=== PATIENT | female | born 1950 | race Caucasian/White ===

== ENCOUNTER 2020-06-22 10:30 | Day surgery (SDC) | payer MEDICARE, OTHER ==
[~2020-06-22 10:30] MED LIST: BESIFLOXACIN HCL 0.6% OPH SUSP 5 ML BOTTLE OD PRN; BUPIVACAINE HCL 0.75% INJ/PF (7.5 MG/1 ML) 10 ML SDV OD PRN; CYCLOPENTOLATE 0.2%/PHENYLEPHRINE 1% OPH SOLN 2 ML OD PRN; DORZOLAMIDE HCL 2%/TIMOLOL MALEAT 0.5% OPH SOLN 10 ML OD PRN; KETOROLAC TROMETHAMINE 0.45% 4 DROP/0.4 ML DROPERETTE OD PRN; LIDOCAINE 1% INJ-PF (10 MG/ML) 30 ML SDV ONE; LIDOCAINE 4% INJ/PF (40 MG/ML) 5 ML AMPUL OD PRN; TETRACAINE HCL 0.5% OPH SOLN 4 ML OD PRN; TROPICAMIDE 1% OPH SOLN 15 ML OD PRN
[2020-06-22] MEDS: CYCLOPENTOLATE 0.2%/PHENYLEPHRINE 1% OPH SOLN 2 ML OD PRN ×3 (10:40→11:00)
[2020-06-22] MEDS: BESIFLOXACIN HCL 0.6% OPH SUSP 5 ML BOTTLE OD PRN ×4 (10:40→12:05)
[2020-06-22] MEDS: TROPICAMIDE 1% OPH SOLN 15 ML OD PRN ×3 (10:40→11:00)
[2020-06-22] MEDS: TETRACAINE HCL 0.5% OPH SOLN 4 ML OD PRN ×4 (10:40→11:29)
[2020-06-22] MEDS: LIDOCAINE 4% INJ/PF (40 MG/ML) 5 ML AMPUL OD PRN ×2 (11:33)
[2020-06-22] MEDS: BUPIVACAINE HCL 0.75% INJ/PF (7.5 MG/1 ML) 10 ML SDV OD PRN ×2 (11:33)
[2020-06-22] MEDS ORDERED: FENTANYL CITRATE INJ/PF 100 MCG/2 ML AMPUL ONE (11:41)
[2020-06-22] MEDS ORDERED: MIDAZOLAM 2 MG/2 ML INJ ONE (11:41)
[2020-06-22] MEDS: CHONDR SU A NA/HYALUR INTRAOC KIT (SURGICARE) ONE ×2 (11:44)
[2020-06-22] MEDS: LIDOCAINE 1%/PHENYLEPHRINE 1.5% 0.8 ML SYRINGE ONE ×2 (11:44)
[2020-06-22] MEDS: EPINEPHRINE INJ/PF 1 MG/1 ML AMPULE ONE ×2 (11:44)
[2020-06-22] MEDS: HYALURONATE SODIUM SYRINGE 0.55 ML ONE ×2 (11:50)
[2020-06-22] MEDS: DORZOLAMIDE HCL 2%/TIMOLOL MALEAT 0.5% OPH SOLN 10 ML OD PRN ×2 (12:05)
--- NOTE | 2020-06-22 12:24 | Operative Report ---
Operative Report-[facility] Operative Report: DATE OF SURGERY: 06/22/2020 PREOPERATIVE DIAGNOSIS: 1. CATARACT, RIGHT EYE 2. PRIMARY OPEN ANGLE GLAUCOMA, RIGHT EYE POSTOPERATIVE DIAGNOSIS: 1. CATARACT, RIGHT EYE 2. PRIMARY OPEN ANGLE GLAUCOMA, RIGHT EYE PROCEDURE PERFORMED: PHACOEMULSIFICATION WITH POSTERIOR CHAMBER INTRAOCULAR LENS WITH INSERTION OF ISTENT INJECTION, RIGHT EYE Intraocular Lens Model: ZCBOO 15.0 Total Phaco Time: 8.7 CDE SURGEON: BENSON POP MD ANESTHESIA: Topical with MAC plus intraocular lidocaine with phenylephrine INDICATIONS FOR SURGERY: Difficulty reading road signs and words on TV INDICATION FOR ISTENT: To decrease the needs for topical glaucoma medications PROCEDURE: The patient was brought to the operating room and placed on operative table. Following Tetracaine drops, topical anesthesia was administered. This consisted of instrument wipes pledgets soaked in a solution of 4% Xylocaine mixed with a 0.75% Marcaine in a 1:2 ratio. A 2 x 1 cm pledget was placed in the superior fornix. A 11 cm pledget was placed in the inferior fornix. The eye was patched shut for 5 minutes. The patch was removed. The eye was sterilely prepped and draped in the usual manner. Lid speculum was placed in the eye. The pledgets were removed and a 4-0 black silk suture was placed around the superior and inferior rectus muscle to use as traction. Conjunctival peritomy was made at the 10 o'clock position. Hemostasis was obtained with bipolar cautery. A posterior limbal groove was created using a crescent knife and dissection anteriorly towards the cornea. A sharp point blade was used to create a paracentesis site at the 2 o'clock position. 0.2 cc of 1% non-preserved lidocaine with phenylephrine was injected through the side-port incision. A 2.4 mm keratome was used to enter the anterior chamber through the group. Viscoelastic was injected into the anterior chamber. Anterior capsulotomy was performed using Utrata forceps in a capsulorrhexis fashion. Hydrodissection and hydrodelineation was performed. Phacoemulsification was performed in a divide and conquer technique. Following this, the I/A unit was used to remove residual cortex. Viscoelastic was injected into the capsular bag. Intraocular lens were placed in the capsular bag. Following insertion of the lens implant, additional Provisc was placed in the eye. The eye was rotated inferiorly and the gonioprism was placed on the eye. The trabecular meshwork was easily visualized. The ISTENT inject was opened and 2 ISTENTs were placed approximately 2 clock hours apart at approximately 6 o'clock and 8 o'clock. There was good reflux through the ISTENTs. The I/A unit was used to remove residual viscoelastic. The wound was seen to be watertight under high and low pressure, and no sutures were placed. The intraocular lens was well centered. The pressure was adjusted in the eye to normal pressure. The 4-0 black silk sutures and lid speculum were removed. The eye was shielded after Besivance and Cosopt drops were placed. The patient tolerated the procedure well and was sent to the recovery room in good condition.
== END 2020-06-22 12:46 ==
LOC: SC 10:30
PROVIDERS: ATTEND Ophthalmology
DX: H25.813 Combined forms of age-related cataract, bilateral (principal); H40.1131 Primary open-angle glaucoma, bilateral, mild stage; H57.03 Miosis; H04.123 Dry eye syndrome of bilateral lacrimal glands; H01.005 Unspecified blepharitis left lower eyelid; H35.363 Drusen (degenerative) of macula, bilateral; I10 Essential (primary) hypertension; E03.9 Hypothyroidism, unspecified; Z88.8 Allergy status to other drugs, medicaments and biological substances; Z79.899 Other long term (current) drug therapy
CPT/HCPCS: 0191T; 66984; 140; C1783; J0171; J2250; J3010; J3490; V2632

== ENCOUNTER 2020-07-11 10:22 | Day surgery (SDC) | payer MEDICARE, OTHER ==
[~2020-07-11 10:22] MED LIST changes: -BESIFLOXACIN HCL 0.6% OPH SUSP 5 ML BOTTLE OD PRN; -BUPIVACAINE HCL 0.75% INJ/PF (7.5 MG/1 ML) 10 ML SDV OD PRN; -CYCLOPENTOLATE 0.2%/PHENYLEPHRINE 1% OPH SOLN 2 ML OD PRN; -DORZOLAMIDE HCL 2%/TIMOLOL MALEAT 0.5% OPH SOLN 10 ML OD PRN; -KETOROLAC TROMETHAMINE 0.45% 4 DROP/0.4 ML DROPERETTE OD PRN; -LIDOCAINE 1% INJ-PF (10 MG/ML) 30 ML SDV ONE; -LIDOCAINE 4% INJ/PF (40 MG/ML) 5 ML AMPUL OD PRN; +PREDNISOLONE ACETATE 1% OPH SUSP 5 ML OS PRN; -TETRACAINE HCL 0.5% OPH SOLN 4 ML OD PRN; -TROPICAMIDE 1% OPH SOLN 15 ML OD PRN
[2020-07-11] MEDS: BESIFLOXACIN HCL 0.6% OPH SUSP 5 ML BOTTLE OS PRN ×4 (10:39→11:45)
[2020-07-11] MEDS: TROPICAMIDE 1% OPH SOLN 15 ML OS PRN ×3 (10:39→10:50)
[2020-07-11] MEDS: CYCLOPENTOLATE 0.2%/PHENYLEPHRINE 1% OPH SOLN 2 ML OS PRN ×3 (10:39→10:49)
[2020-07-11] MEDS: TETRACAINE HCL 0.5% OPH SOLN 4 ML OS PRN ×4 (10:39→11:10)
[2020-07-11] MEDS: KETOROLAC TROMETHAMINE 0.45% 4 DROP/0.4 ML DROPERETTE OS PRN ×2 (10:40→11:59)
[2020-07-11] MEDS ORDERED: MIDAZOLAM 2 MG/2 ML INJ ONE (10:51)
[2020-07-11] MEDS: BUPIVACAINE HCL 0.75% INJ/PF (7.5 MG/1 ML) 10 ML SDV OS PRN ×2 (11:13)
[2020-07-11] MEDS: LIDOCAINE 4% INJ/PF (40 MG/ML) 5 ML AMPUL OS PRN ×2 (11:13)
[2020-07-11] MEDS: CHONDR SU A NA/HYALUR INTRAOC KIT (SURGICARE) ONE ×2 (11:23)
[2020-07-11] MEDS: LIDOCAINE 1%/PHENYLEPHRINE 1.5% 0.8 ML SYRINGE ONE ×2 (11:23)
[2020-07-11] MEDS: EPINEPHRINE INJ/PF 1 MG/1 ML AMPULE ONE ×2 (11:23)
[2020-07-11] MEDS: DORZOLAMIDE HCL 2%/TIMOLOL MALEAT 0.5% OPH SOLN 10 ML OS PRN ×2 (11:45)
[2020-07-11] MEDS ORDERED: HYALURONATE SODIUM SYRINGE 0.55 ML ONE (11:54)
[2020-07-11] MEDS ORDERED: ACETAMINOPHEN 325 MG TABLET ONE (12:02)
--- NOTE | 2020-07-11 12:22 | Operative Report ---
Operative Report-[facility] Operative Report: DATE OF SURGERY: 07/11/2020 PREOPERATIVE DIAGNOSIS: 1. CATARACT, LEFT EYE. 2. PRIMARY OPEN ANGLE GLAUCOMA, LEFT EYE POSTOPERATIVE DIAGNOSIS: 1. CATARACT, LEFT EYE. 2. PRIMARY OPEN ANGLE GLAUCOMA, LEFT EYE PROCEDURE PERFORMED: PHACOEMULSIFICATION WITH POSTERIOR CHAMBER INTRAOCULAR LENS WITH INSERTION OF ISTENT INJECTION, LEFT EYE Intraocular Lens Model: ZCBOO 17.0 Total Phaco Time: 16.9 CDE SURGEON: BENSON POP MD ANESTHESIA: Topical plus intraocular lidocaine with phenylephrine and MAC INDICATIONS FOR SURGERY: Difficulty reading street signs and words on TV INDICATION FOR ISTENT: Primary open angle glaucoma and the desire to reduce the need for topical medications PROCEDURE: The patient was brought to the operating room and placed on operative table. Following Tetracaine drops, topical anesthesia was administered. This consisted of instrument wipes pledgets soaked in a solution of 4% Xylocaine mixed with a 0.75% Marcaine in a 1:2 ratio. A 2 x 1 cm pledget was placed in the superior fornix. A 11 cm pledget was placed in the inferior fornix. The eye was patched shut for 5 minutes. The patch was removed. The eye was sterilely prepped and draped in the usual manner. Lid speculum was placed in the eye. The pledgets were removed and a 4-0 black silk suture was placed around the superior and inferior rectus muscle to use as traction. Conjunctival peritomy was made at the 10 o'clock position. Hemostasis was obtained with bipolar cautery. A posterior limbal groove was created using a crescent knife and dissection anteriorly towards the cornea. A sharp point blade was used to create a paracentesis site at the 2 o'clock position. 0.2 cc of 1% non-preserved lidocaine with p henylephrine was injected into the anterior chamber. A 2.4 mm keratome was used to enter the anterior chamber through the grove. Viscoelastic was injected into the anterior chamber. Anterior capsulotomy was performed using Utrata forceps in a capsulorrhexis fashion. Hydrodissection and hydrodelineation was performed. Phacoemulsification was performed in a divide and conquer technique. Following this, the I/A unit was used to remove residual cortex. Viscoelastic was injected into the capsular bag. Intraocular lens were placed in the capsular bag. Following insertion of the lens implant, additional Provisc was placed in the eye. The eye was rotated inferiorly and the gonioprism was placed on the eye. The trabecular meshwork was easily visualized. The ISTENT inject was opened and 2 ISTENTs were placed approximately 2 clock hours apart at approximately 6 o'clock and 8 o'clock. There was good reflux through the ISTENTs. The I/A unit was used to remove residual viscoelastic. The wound was seen to be watertight under high and low pressure, and no sutures were placed. The intraocular lens was well centered. The pressure was adjusted in the eye to normal pressure. The 4-0 black silk sutures and lid speculum were removed. The eye was shielded after Besivance and Cosopt drops were placed. The patient tolerated the procedure well and was sent to the recovery room in good condition.
== END 2020-07-11 12:31 | disposition home or self-care (01) ==
LOC: SC 10:22
PROVIDERS: ATTEND Ophthalmology
DX: H25.812 Combined forms of age-related cataract, left eye (principal); H40.1131 Primary open-angle glaucoma, bilateral, mild stage; H57.03 Miosis; Z96.1 Presence of intraocular lens; I10 Essential (primary) hypertension; E03.9 Hypothyroidism, unspecified
CPT/HCPCS: 0191T; 66984; 140; C1783; J0171; J2250; J3490; V2632